=== PATIENT | female | born 1940 | race Caucasian/White ===

== ENCOUNTER → 2016-10-29 | Outpatient (REF) | payer MEDICARE, OTHER ==
[~2016-10-29] MED LIST: BOTOX; GLYB125TA PO; LASI40TA PO; LISI30TA4 PO; OMEP20CA3 PO; PIOG15TA3 PO; SIMV20TA2 PO; ZOLO50TA PO
[2016-10-29 18:46] LABS: ALBUMIN 3.6 GM/DL (3.2-5.2); CALCIUM LEVEL 8.6 MG/DL (8.8-10.2); CREATININE FOR GFR 1.44 MG/DL (0.55-1.02); GLOMERULAR FILTRATION RATE 37.9 (>39); PHOSPHORUS LEVEL 3.6 MG/DL (2.5-4.9); POTASSIUM SERUM 4.2 MEQ/L (3.5-5.1)
== END ==
LOC: M SFHCCLAY 09:49
PROVIDERS: ATTEND Family Medicine
DX: N18.3 Chronic kidney disease, stage 3 (moderate) (principal)

== ENCOUNTER → 2016-11-04 | Outpatient (CLI) | payer MEDICARE, BC, OTHER ==
--- NOTE | 2016-11-04 13:52 | REP ---
Clinical: Chronic medical renal disease. Technique: Real time santana scale ultrasound examination using curved array transducer. Findings: The kidneys demonstrate increased central sinus fat and cortical thinning compatible with chronic medical renal disease. There is no hydronephrosis, nephrolithiasis or significant cystic lesions identified. Right kidney measures 10.1 x 3.5 x 4.8 cm. Kidney measures 10.5 x 3.7 x 4.5 cm with a vague 1.6 cm hypoechoic area at the lower pole which cannot be further evaluated by ultrasound. The bladder is under distended measuring 4.5 x 3.38 x 4.4 cm and grossly normal. Impression: 1. Chronic medical renal disease without hydronephrosis. 2. A vague 1.6 cm hypoechoic area at the lower pole of the left kidney cannot be further evaluated by ultrasound and the patient may benefit from pre and postcontrast CT for further investigation. Signed by Qamar Angel MD 11/04/2016 01:42 P
== END ==
LOC: M RAD 13:08
PROVIDERS: ATTEND Internal Medicine Nephrology
DX: N18.3 Chronic kidney disease, stage 3 (moderate) (principal)

== ENCOUNTER → 2017-02-05 | Outpatient (CLI) | payer MEDICARE, BC, OTHER ==
[~2017-02-05] MED LIST changes: +ISOVUE-370 76% 100ML VIAL (Q9967) As Ordered ONE
--- NOTE | 2017-02-05 10:30 | REP ---
CT abdomen pelvis multiphasic scanning without and with IV contrast: The study is compared to the renal ultrasound dated 11/04/2016. On the renal ultrasound. There was a hypoechoic area at the lower pole of the left kidney, nonspecific by ultrasound. CT study today is initially performed without IV contrast from diaphragms to the iliac crests. This is followed by CT scanning with IV contrast during the arterial phase of enhancement from the diaphragms to the iliac crests. This is followed by scanning during the portal venous phase of enhancement from the diaphragms to the pubic symphysis. This is followed by scanning during the delayed equilibrium phase of enhancement from the diaphragms to the iliac crests. Sagittal coronal reformats are performed. There is no mass, cyst or other abnormality at the lower pole of the left kidney by CT. The left and right kidneys are otherwise unremarkable without hydronephrosis, calculus, mass or cyst. The ureters are unremarkable. The bladder is incompletely distended but otherwise unremarkable. There is an umbilical hernia measuring 5.8 cm diameter containing omental fat but no bowel. The peritoneal defect measures 1.9 cm. There is no bowel distension. Mesentery is unremarkable. Pelvis: The the patient indicates she has an appendectomy. and hysterectomy. The vaginal cuff and adnexa are unremarkable. There is no adenopathy or ascites. There are diverticula in the descending colon and sigmoid colon. There is no CT evidence of diverticulitis. Impression: There are no renal masses at the lower pole of the left kidney. The kidneys are otherwise unremarkable. There is a fat-containing umbilical hernia. There is diverticulosis without diverticulitis. Otherwise, negative CT study of the abdomen and pelvis. The visualized lung rg are unremarkable. The hepatic parenchyma is homogeneous on all phases of the study. Surgical clips in the gallbladder fossa. The pancreas and spleen are normal size and unremarkable. The adrenals are unremarkable. The abdominal aorta and visualized portion of the mesentery is unremarkable. Signed by Richmond Narayan MD 02/05/2017 10:21 A
== END ==
LOC: M RAD 08:18
PROVIDERS: ATTEND Internal Medicine Nephrology
DX: D41.02 Neoplasm of uncertain behavior of left kidney (principal)
CPT/HCPCS: 74178; Q9967

== ENCOUNTER → 2017-04-21 | Outpatient (REF) | payer MEDICARE, BC, OTHER ==
[~2017-04-21] MED LIST changes: +BIMA01SOL OU; +FURO40TA2 PO; -ISOVUE-370 76% 100ML VIAL (Q9967) As Ordered ONE; +SPIR25TA2 PO
[2017-04-21 20:20] LABS: CALCIUM LEVEL 8.8 MG/DL (8.8-10.2); CREATININE FOR GFR 1.32 MG/DL (0.55-1.02); GLOMERULAR FILTRATION RATE 41.9 (>39); POTASSIUM SERUM 4.3 MEQ/L (3.5-5.1)
== END ==
LOC: M LAB REF 16:58
PROVIDERS: ATTEND Orthopaedic Surgery
DX: S83.242D Other tear of medial meniscus, current injury, left knee, subsequent encounter (principal); X58.XXXD Exposure to other specified factors, subsequent encounter; Y92.89 Other specified places as the place of occurrence of the external cause; Y93.89 Activity, other specified; Y99.8 Other external cause status

== ENCOUNTER 2017-05-10 09:34 | Day surgery (SDC) | payer MEDICARE, BC, OTHER ==
[~2017-05-10] VITALS: Ht 162.6 cm; Wt 117.9 kg
[~2017-05-10 09:34] MED LIST changes: +LIDOCAINE 2% INJ 100 MG/5 ML SDV (FOR ANES.) As Ordered ONE; +MIDAZOLAM INJ 2 MG/2 ML VIAL (J2250) As Ordered ONE; +ONDANSETRON 4MG/2ML VIAL (J2405) As Ordered ONE; +PROPOFOL 200 MG/20 ML VIAL As Ordered ONE; +dexameTHASONE 4 MG/ML 1ML VIAL (J1100) As Ordered ONE; +fentaNYL 100 MCG/2 ML INJECTION (J3010) As Ordered ONE
[2017-05-10] MEDS ORDERED: CLINDAMYCIN 600 MG in APPROPRIATE DILUENT 1 EA IV ONE (10:00)
[2017-05-10] MEDS ORDERED: LR 1,000 ML IV ONE (10:00)
[2017-05-10] MEDS ORDERED: ROPIvacaine 0.5% 30 ML INJECTION (J2795) As Ordered ONE (10:29)
[2017-05-10] MEDS ORDERED: TRIAMCINOLONE ACETONIDE SUSP 40 MG/ML VIAL (J3301) As Ordered ONE (10:57)
--- NOTE | 2017-05-10 11:31 | RO ---
DATE OF PROCEDURE: 05/10/2017 PREOPERATIVE DIAGNOSIS: Left knee osteoarthritis, medial meniscus tear. POSTOPERATIVE DIAGNOSIS: Left knee osteoarthritis, medial meniscus tear, with lateral meniscus tear. PROCEDURE: Left knee operative arthroscopy, partial medial and lateral meniscectomy, joint debridement. She did have extensive arthritis of three compartments. SURGEON: Dr. Casey Gutierrez [employer] MISSILE CHECK[employer] TECHNICIAN: Noah Shah ANESTHESIA: General. ESTIMATED BLOOD LOSS: Minimal COMPLICATIONS: None. INDICATIONS: This is a morbidly obese 76-year-old woman who has had persistent left knee pain. MRI scan was consistent with arthritis and a possible medial meniscal tear. She wished to go ahead with surgical treatment and understood the nature of the procedure and the risks of bleeding, infection, damage to nerves, vessels, persistent pain, blood clots, medical problems, among others. PROCEDURE: The patient was taken to the operating room and placed in supine position after general anesthesia was induced. The left lower extremity was prepped and draped in the usual sterile fashion. I elected to not use a tourniquet because of the size of her leg and I felt that it would be counterproductive. A time-out was performed. I then created inferomedial and inferolateral portals per routine and she had extensive degenerative change grade 3 to 4 throughout the patellofemoral joint. I proceeded down both gutters and got inside of the medial compartment. There was a complex medial meniscus tear in the body and posterior horn that was debrided back with a shaver back to a stable rim. I also smoothed off the articular surfaces which had loose flaps. I proceeded to the notch. The anterior cruciate ligament (ACL) was relatively unremarkable. The lateral compartment was identified. There was extensive lateral compartment arthritis and a small central lateral meniscus tear that was debrided with the shaver. I also smoothed off any loose flaps laterally. I debrided the patellofemoral joint as best as possible, but this was quite difficult given the size of her leg and instrumenting the knee was quite difficult as a result. Once I finished the procedure, I irrigated copiously and removed the instrumentation. I closed the portals using #4-0 nylon suture and injected 30 mL of Naropin with 20 mg of Kenalog. Sterile dressing was applied. She was taken to recovery room in stable condition. There were no known complications. The plan be routine postop. This was an unusually difficult procedure due to her significant obesity and the difficulty in instrumenting the knee as a result.
[2017-05-10] MEDS ORDERED: NORCO, ANEXSIA 5/325MG TABLET (HYDROcodone/ACETAMINOPHEN) As Ordered ONE (11:44)
[2017-05-10] MEDS ORDERED: fentaNYL 100 MCG/2 ML INJECTION (J3010) As Ordered ONE (11:44)
[2017-05-10] MEDS ORDERED: ONDANSETRON 4MG/2ML VIAL (J2405) As Ordered ONE (11:50)
[2017-05-10] MEDS: fentaNYL 100 MCG/2 ML INJECTION (J3010) IV PRN ×4 (11:52→12:11)
[2017-05-10] MEDS ORDERED: LR 1,000 ML IV SCH ×2 (12:00)
[2017-05-10] MEDS ORDERED: NORCO, ANEXSIA 5/325MG TABLET (HYDROcodone/ACETAMINOPHEN) PO PRN ×2 (12:00)
[2017-05-10] MEDS ORDERED: ONDANSETRON 4MG/2ML VIAL (J2405) IV PRN (12:00)
[2017-05-10] MEDS ORDERED: KETOROLAC 30 MG/ML VIAL (J1885) As Ordered ONE (12:20)
[2017-05-10] MEDS ORDERED: PERCOCET 5MG/325MG TAB PO PRN (12:30)
[2017-05-10] MEDS ORDERED: KETOROLAC 30 MG/ML VIAL (J1885) IV ONE (13:00)
[2017-05-10 13:40] VITALS: BP 139/64
== END 2017-05-10 13:50 | disposition home or self-care (01) ==
LOC: M SDC 09:34
PROVIDERS: ATTEND Orthopaedic Surgery
DX: M17.12 Unilateral primary osteoarthritis, left knee (principal); M23.222 Derangement of posterior horn of medial meniscus due to old tear or injury, left knee; M23.262 Derangement of other lateral meniscus due to old tear or injury, left knee; M25.562 Pain in left knee; E11.9 Type 2 diabetes mellitus without complications; I10 Essential (primary) hypertension; E78.5 Hyperlipidemia, unspecified; K21.9 Gastro-esophageal reflux disease without esophagitis; E66.9 Obesity, unspecified; Z79.899 Other long term (current) drug therapy; F32.9 Major depressive disorder, single episode, unspecified; Z88.0 Allergy status to penicillin; Z88.2 Allergy status to sulfonamides; Z91.041 Radiographic dye allergy status
CPT/HCPCS: 29880; 29887; J1100; J1885; J2250; J2405; J2795; J3010; J3301

== ENCOUNTER → 2017-07-28 | Outpatient (REF) | payer MEDICARE, OTHER ==
[~2017-07-28] MED LIST changes: -LIDOCAINE 2% INJ 100 MG/5 ML SDV (FOR ANES.) As Ordered ONE; -MIDAZOLAM INJ 2 MG/2 ML VIAL (J2250) As Ordered ONE; -ONDANSETRON 4MG/2ML VIAL (J2405) As Ordered ONE; -PROPOFOL 200 MG/20 ML VIAL As Ordered ONE; -dexameTHASONE 4 MG/ML 1ML VIAL (J1100) As Ordered ONE; -fentaNYL 100 MCG/2 ML INJECTION (J3010) As Ordered ONE
[2017-07-29 12:42] LABS: ALBUMIN 4.1 GM/DL (3.2-5.2); ALBUMIN/GLOBULIN RATIO 1.21 (1.00-1.93); BILIRUBIN,TOTAL 0.3 MG/DL (0.2-1.0); CALCIUM LEVEL 8.9 MG/DL (8.8-10.2); CREATININE FOR GFR 1.66 MG/DL (0.55-1.02); GLOMERULAR FILTRATION RATE 32.1 (>39); POTASSIUM SERUM 4.4 MEQ/L (3.5-5.1); TOTAL PROTEIN 7.5 GM/DL (6.4-8.2)
== END ==
LOC: M SFHCCLAY 14:59
PROVIDERS: ATTEND Family Medicine
DX: E11.9 Type 2 diabetes mellitus without complications (principal)

== ENCOUNTER → 2018-05-09 | Outpatient (REF) | payer MEDICARE, OTHER ==
[2018-05-09 14:46] LABS: FERRITIN 41 NG/ML (8-252); IRON (FE) 71 UG/DL (50-170); PERCENT SATURATION 21.6 % (13.2-45.0); TOTAL IRON BINDING CAPACITY 328 UG/DL (250-450)
== END ==
LOC: M LAB REF 13:43
DX: D50.9 Iron deficiency anemia, unspecified (principal)
CPT/HCPCS: 83550

== ENCOUNTER 2018-11-14 08:56 | Outpatient (CLI) | payer MEDICARE, BC, OTHER ==
[~2018-11-14] VITALS: Ht 157.5 cm; Wt 105.5 kg
[2018-11-14] VITALS (7 sets, daily range): BP systolic 122–155; BP diastolic 57–97
[~2018-11-14 08:56] MED LIST changes: -LASI40TA PO; +LASI40TA9 PO; +LISI-672 PO; -LISI30TA4 PO; -PIOG15TA3 PO; +PIOG1TAB36 PO; +SPIR-10 PO; -SPIR25TA2 PO
[2018-11-14] MEDS ORDERED: IRON SUCROSE 25 MG in NS 50 ML IV ONE (10:00)
[2018-11-14] MEDS ORDERED: IRON SUCROSE 475 MG in NS 250 ML IV ONE (11:00)
== END 2018-11-14 14:30 | disposition home or self-care (01) ==
LOC: M INFU 08:56
PROVIDERS: ATTEND Internal Medicine Nephrology
DX: D50.9 Iron deficiency anemia, unspecified (principal); N18.3 Chronic kidney disease, stage 3 (moderate); Z79.899 Other long term (current) drug therapy
CPT/HCPCS: 96365; 96366; J1756

== ENCOUNTER → 2018-12-21 | Outpatient (CLI) | payer MEDICARE, BC, OTHER ==
--- NOTE | 2018-12-21 14:23 | REP ---
REASON FOR EXAM: Abnormal weight loss. The exam is limited by lack of intravenous contrast administration and administration of oral bowel preparatory contrast. The prior examination of 02/05/2017 was reviewed. There is no change in the lung bases. Surgical clips are again seen in the gallbladder fossa from previous cholecystectomy. Limited evaluation of the solid intra-abdominal organs show no gross abnormalities or significant changes from the prior exam. Limited evaluation of the pancreas, adrenal glands, and kidneys show no gross abnormalities or significant changes from the prior exam. Limited evaluation of the abdominal aorta and paraaortic regions show no gross abnormalities or significant changes from the prior exam. There is no free fluid or free air in the abdomen. There is a low anterior abdominal wall ventral rent in through which a loop of large bowel is present. The large bowel loops is surrounded by mesenteric adipose. The previous exam showed only a mesenteric fat-containing hernia. There is no ferdinand evidence of intestinal obstruction. The bowel loops, although seen in a limited fashion are otherwise unremarkable. Note is again made of descending colon diverticulosis. CT PELVIS: There is extensive sigmoid colon diverticulosis status quo. There is no evidence of a pelvic mass or adenopathy. There is no free fluid or free air. Bone window technique throughout the examination again shows spinal and sacroiliac joint degenerative changes along with bilateral hip degenerative changes status quo. IMPRESSION: 1. Low anterior abdominal hernia as described above. 2. Stable-appearing colonic diverticulosis as described above. 3. Other findings and exam limitations as described above. ? Electronically Signed by Timothy Pierce DO 12/21/2018 03:26 P
== END ==
LOC: M RAD 13:10
PROVIDERS: ATTEND Internal Medicine Gastroenterology
DX: K57.30 Diverticulosis of large intestine without perforation or abscess without bleeding (principal); K44.9 Diaphragmatic hernia without obstruction or gangrene

== ENCOUNTER 2018-12-28 08:04 | Day surgery (SDC) | payer MEDICARE, BC, OTHER ==
[~2018-12-28] VITALS: Ht 157.5 cm; Wt 96.5 kg
[~2018-12-28 08:04] MED LIST changes: +LIDOCAINE 2% INJ 100 MG/5 ML SDV (FOR ANES.) As Ordered ONE; +NS 1,000 ML IV ONE; +PROPOFOL 200 MG/20 ML VIAL As Ordered ONE
[2018-12-28] MEDS ORDERED: PROPOFOL 200 MG/20 ML VIAL As Ordered ONE ×2 (09:18→09:35)
--- NOTE | 2018-12-28 09:20 | ROOR ---
Patient Name: Christy Riojas Procedure Date: 12/28/2018 8:50 AM Date of : 1940 Age: 78 Room: [facility] Gender: Female Note Status: Finalized Procedure: Upper GI endoscopy Indications: Weight loss Providers: Rell KEY MD Referring MD: Ross Saunders MD ([place]) Requesting Provider: Medicines: Monitored Anesthesia Care Complications: No immediate complications. Procedure: Pre-Anesthesia Assessment: - The heart rate, respiratory rate, oxygen saturations, blood pressure, adequacy of pulmonary ventilation, and response to care were monitored throughout the procedure. The Endoscope was introduced through the mouth, and advanced to the third part of duodenum. The upper GI endoscopy was accomplished without difficulty. The patient tolerated the procedure well. Findings: The examined esophagus was normal. A small hiatal hernia was present. A single 5 mm sessile polyp was found in the gastric antrum. The polyp was removed with a cold snare. Resection and retrieval were complete. Multiple diffuse erosions without bleeding were found in the second portion of the duodenum and in the third portion of the duodenum. Biopsies were taken with a cold forceps for histology. Impression: - Normal esophagus. - Small hiatal hernia. - A single gastric polyp. Resected and retrieved. - Multiple shallow duodenal erosions/shallow ulcerations without bleeding. Biopsied. Recommendation: - - Will check fasting serum gastrin level. (off PPI x 3 days) - Resume PPI bid after gastrin level drawn. Await pathology report Rell Key MD Rell KEY MD 12/28/2018 9:19:41 AM Electronically signed by Rell KEY MD Number of Addenda: 0 Note Initiated On: 12/28/2018 8:50 AM Estimated Blood Loss: Estimated blood loss: none.
--- NOTE | 2018-12-28 09:54 | ROOR ---
Patient Name: Christy Riojas Procedure Date: 12/28/2018 8:52 AM Date of : 1940 Age: 78 Room: [facility] Gender: Female Note Status: Finalized Procedure: Colonoscopy Indications: Clinically significant diarrhea of unexplained origin, weight loss Providers: Rell KEY MD Referring MD: Ross Saunders MD ([place]) Requesting Provider: Medicines: Monitored Anesthesia Care Complications: No immediate complications. Procedure: Pre-Anesthesia Assessment: - The heart rate, respiratory rate, oxygen saturations, blood pressure, adequacy of pulmonary ventilation, and response to care were monitored throughout the procedure. The Colonoscope was introduced through the anus and advanced to the terminal ileum, with identification of the appendiceal orifice and IC valve. The colonoscopy was performed without difficulty. The patient tolerated the procedure well. The quality of the bowel preparation was good. Findings: The perianal and digital rectal examinations were normal. (Exam: Complete, Prep: Good or Excellent.) An infiltrative non-obstructing medium-sized mass was found in the distal ascending colon. The mass was partially circumferential (involving one-third of the lumen circumference). The mass measured four cm in length. This was biopsied with a cold forceps for histology. Two sessile polyps were found in the sigmoid colon. The polyps were 4 to 5 mm in size. These polyps were removed with a cold snare. Resection and retrieval were complete. Multiple small and large-mouthed diverticula were found in the sigmoid colon. There was narrowing of the colon in association with the diverticular opening. Biopsies for histology were taken with a cold forceps from the entire colon for evaluation of microscopic colitis. Impression: - Rule out malignancy, 4 cm infiltrative tumor in the mid/distal ascending colon. Biopsied. - Two 4 to 5 mm polyps in the sigmoid colon, removed with a cold snare. Resected and retrieved. - Moderate diverticulosis in the sigmoid colon. There was narrowing of the colon in association with the diverticular opening. - Biopsies were taken with a cold forceps from the entire colon for evaluation of microscopic colitis. Recommendation: - Await pathology results. - Refer to a surgeon at appointment to be scheduled. Rell Key MD Rell KEY MD 12/28/2018 9:54:27 AM Electronically signed by Rell KEY MD Number of Addenda: 0 Note Initiated On: 12/28/2018 8:52 AM Estimated Blood Loss: Estimated blood loss: none.
[2018-12-28 10:15] VITALS: BP 138/73
== END 2018-12-28 10:46 | disposition home or self-care (01) ==
LOC: M OPP 08:04
PROVIDERS: ATTEND Internal Medicine Gastroenterology
DX: C18.2 Malignant neoplasm of ascending colon (principal); D12.5 Benign neoplasm of sigmoid colon; K57.30 Diverticulosis of large intestine without perforation or abscess without bleeding; R19.7 Diarrhea, unspecified; R63.4 Abnormal weight loss; K44.9 Diaphragmatic hernia without obstruction or gangrene; K31.7 Polyp of stomach and duodenum; K26.9 Duodenal ulcer, unspecified as acute or chronic, without hemorrhage or perforation

== ENCOUNTER → 2019-01-11 | Outpatient (CLI) | payer MEDICARE, BC, OTHER ==
[~2019-01-11] MED LIST changes: -LIDOCAINE 2% INJ 100 MG/5 ML SDV (FOR ANES.) As Ordered ONE; -NS 1,000 ML IV ONE; -PROPOFOL 200 MG/20 ML VIAL As Ordered ONE
== END ==
LOC: M LAB 09:25
PROVIDERS: ATTEND Internal Medicine Gastroenterology
DX: K26.9 Duodenal ulcer, unspecified as acute or chronic, without hemorrhage or perforation (principal)

== ENCOUNTER → 2019-01-30 | Outpatient (CLI) | payer MEDICARE, OTHER ==
[~2019-01-30] MED LIST changes: +FAMO1TAB11 PO
--- NOTE | 2019-01-30 12:34 | REP ---
CHEST X-RAY: Two views. HISTORY: Malignant neoplasm. COMPARISON CHEST X-RAY: June 18, 2009. FINDINGS: There are clips in right upper quadrant of the abdomen. The lungs are well inflated and clear. The pleural angles are sharp. Heart is not enlarged. The aorta is slightly calcific. There are degenerative changes in the thoracic spine. Pulmonary vasculature is not increased. IMPRESSION: No active disease.
== END ==
LOC: M CLY 10:48
PROVIDERS: ATTEND Family Medicine
DX: C18.2 Malignant neoplasm of ascending colon (principal); E11.9 Type 2 diabetes mellitus without complications

== ENCOUNTER → 2019-01-30 | Outpatient (REF) | payer MEDICARE, OTHER ==
[2019-01-30 16:46] LABS: BASO # 0.1 10^3/uL (0.0-0.2); BASO % 0.7 % (0.0-1.0); EOS # 0.3 10^3/uL (0.0-0.50); EOS % 3.1 % (0.0-3.0); HEMATOCRIT 31.7 % (36.0-47.0); HEMOGLOBIN 9.6 g/dl (12.0-15.5); LYMPH # 1.8 10^3/uL (1.5-4.5); LYMPH % 18.9 % (24.0-44.0); MEAN CORPUSCULAR HEMOGLOBIN 27.6 pg (27.0-33.0); MEAN CORPUSCULAR HGB CONC 30.3 g/dl (32.0-36.5); MEAN CORPUSCULAR VOLUME 91.1 fl (80.0-96.0); MONO # 0.7 10^3/uL (0.0-0.8); MONO % 7.7 % (0.0-5.0); NEUTROPHILS # 6.5 10^3/uL (1.8-7.7); NEUTROPHILS % 69.2 % (36.0-66.0); PLATELET COUNT, AUTOMATED 279 10^3/uL (150-450); RED BLOOD COUNT 3.48 10^6/uL (4.00-5.40); WHITE BLOOD COUNT 9.4 10^3/uL (4.0-10.0)
[2019-01-30 16:49] LABS: ALBUMIN 3.1 GM/DL (3.2-5.2); BILIRUBIN,TOTAL 0.2 MG/DL (0.2-1.0); CALCIUM LEVEL 9.2 MG/DL (8.8-10.2); CREATININE FOR GFR 1.86 MG/DL (0.55-1.30); POTASSIUM SERUM 4.3 MEQ/L (3.5-5.1); TOTAL PROTEIN 6.9 GM/DL (6.4-8.2)
== END ==
LOC: M SFHCCLAY 10:31
PROVIDERS: ATTEND Family Medicine
DX: C18.2 Malignant neoplasm of ascending colon (principal); E11.9 Type 2 diabetes mellitus without complications

== ENCOUNTER 2019-02-09 05:56 | Inpatient (IN) | payer MEDICARE, BC, OTHER ==
[2019-02-09] VITALS (7 sets, daily range): BP systolic 130–157; BP diastolic 60–78
[~2019-02-09] VITALS: Ht 157.5 cm; Wt 104.4 kg
[2019-02-09] MEDS ORDERED: LR 1,000 ML IV ONE (06:00)
[2019-02-09 06:34] LABS: HEMATOCRIT 31.8 % (36.0-47.0); MEAN CORPUSCULAR HEMOGLOBIN 28.7 pg (27.0-33.0); MEAN CORPUSCULAR HGB CONC 31.4 g/dl (32.0-36.5); MEAN CORPUSCULAR VOLUME 91.1 fl (80.0-96.0); PLATELET COUNT, AUTOMATED 284 10^3/uL (150-450); RED BLOOD COUNT 3.49 10^6/uL (4.00-5.40); WHITE BLOOD COUNT 10.4 10^3/uL (4.0-10.0)
[2019-02-09] MEDS ORDERED: ERTAPENEM 1 GM INJ (INVanz) (J1335) As Ordered ONE (06:37)
[2019-02-09] MEDS ORDERED: ALVIMOPAN 12 MG CAPSULE (ENTEREG) PO ONE (06:45)
[2019-02-09] MEDS ORDERED: ERTAPENEM SODIUM 1 GM in NS MINI-BAG PLUS 50 ML IV ONE (06:45)
[2019-02-09 06:55] LABS: CALCIUM LEVEL 9.4 MG/DL (8.8-10.2); CREATININE FOR GFR 2.18 MG/DL (0.55-1.30); GLOMERULAR FILTRATION RATE 23.3 (>39); POTASSIUM SERUM 4.1 MEQ/L (3.5-5.1)
[2019-02-09] MEDS ORDERED: METR-265 (07:23)
[2019-02-09] MEDS ORDERED: SUPRSOL2 (07:23)
[2019-02-09] MEDS ORDERED: NEOM500T (07:23)
[2019-02-09] MEDS ORDERED: BUPIVACAINE HCL 0.25% 30 ML VIAL As Ordered ONE (07:32)
[2019-02-09] MEDS ORDERED: BUPIVACAINE LIPOSOME/PF 1.3% 20ML VIAL (13.3MG/ML)(EXPAREL)(C9290 PER1MG) As Ordered ONE (07:33)
--- NOTE | 2019-02-09 07:36 | HPE ---
DATE OF ADMISSION: 02/09/2019 ADMITTING DIAGNOSIS: 1. Right colon cancer. 2. Umbilical hernia. HISTORY OF PRESENT ILLNESS: The patient is a 78-year-old woman who has undergone a colonoscopy on December [address] Das of gastroenterology this was done for a history of significant diarrhea and weight loss. She was found to have what was described as an infiltrative nonobstructing medium sized mass in the distal ascending colon. This was reported to be approximately 4 cm in length. Two smaller polyps were noted in the sigmoid colon. She had some diverticulosis also noted in the sigmoid. An EGD done on the same day revealed some duodenal erosions as well as a small polyp in the gastric antrum. 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 Her gastric polyp was benign and her duodenal biopsies showed acute inflammation. The patient has not noticed any rectal bleeding. The patient's father apparently had colon cancer diagnosed at age 63 and succumbed to metastatic cancer at age 65. The patient's most recent prior colonoscopy had been in January 2016. She had a CT scan of the abdomen and pelvis on December 21 which revealed a low anterior abdominal wall hernia with a loop of large bowel contained therein. There were no other abnormalities seen. She was referred to in for evaluation and treatment of her ascending colon cancer. She is now admitted to undergo a robotically assisted laparoscopic right hemicolectomy with repair of her umbilical hernia as well. ALLERGIES: Penicillin and x-ray contrast. CURRENT MEDICATIONS: Cholestyramine 4 grams by mouth three times daily for diarrhea as needed, famotidine 20 mg by mouth daily, glyburide 2.5 mg by mouth every day in the morning, Lasix 40 mg by mouth daily, lisinopril 20 mg by mouth daily, Lumigan eye drops in both eyes daily, omeprazole 20 mg by mouth daily, simvastatin 20 mg by mouth daily, spironolactone 25 mg by mouth daily, vitamin D3 1000 units by mouth daily and Zoloft 50 mg by mouth daily. MEDICAL HISTORY: Significant for essential hypertension. She has a history of diabetes. She has depression. She was treated for endometrial carcinoma in 2013. She has a history of hypercholesterolemia. She has a history of chronic kidney disease stage III as well as a diagnosis of anxiety. PAST SURGICAL HISTORY: Right rotator cuff repair in approximately 2004. He had a previous dilatation and curettage. She underwent a cholecystectomy in 1979. She has been treated for torn meniscus. A hysterectomy in 2013. She has had colonoscopy in January 2016 and then had a more recent colonoscopy in December 2018. She has had a tendon repair and her right wrist in 1994. She has undergone cataract surgery as well as treatment for a trigger finger. FAMILY HISTORY: Significant for her father succumbing to metastatic colon cancer. Her mother was age 89 and had a history of breast cancer and hypertension. SOCIAL HISTORY: The patient is a former smoker who is has approximately five pack years of smoking history and quit back in 1971. She denies any significant alcohol use. The patient's primary physician is Dr. Casey Saunders from [place]. REVIEW OF SYSTEMS: Reveals no fevers or chills. Denies any visual disturbances. She denies any chest pain or palpitations. She has had no chronic cough, wheezing or sputum production. She denies any rectal bleeding. She has had diarrhea more frequently. She denies any history of heartburn or jaundice. She denies any dysuria or hematuria. She is not having any particular bone or joint problems at this time. She has not had any recent rash. She has no history of DVT or pulmonary embolus. PHYSICAL EXAMINATION: Physical exam reveals a pleasant woman in no acute distress. Her height is recorded at 63 inches with a weight of approximately 100 kg giving her of BMI of approximately 39. She is alert, oriented and cooperative. Skin: Is warm and dry. Sclerae are anicteric. The neck is supple without mass or bruit. Heart: Exam reveals a regular rate and rhythm. The lungs are clear to auscultation bilaterally. Abdomen is obese. She has an old right subcostal scar consistent with her cholecystectomy. She has active bowel sounds. The abdomen is soft and nontender without appreciable mass. She does have a hernia palpable at the umbilicus which reduces. Rectal exam as reported on her recent colonoscopy was normal. Skin: Is warm and dry. Lower extremities: Show no peripheral edema and she has intact peripheral pulses. Laboratory studies from January 30 reveal a white count of 9000, hemoglobin of 10, hematocrit of 32 and platelet count is 279,000. Her differential count shows 69% neutrophils, 19% lymphocytes and 8% monocytes. Chemistry profile showed sodium of 143, potassium 4.3, chloride 112, CO2 of 24, BUN of 43, creatinine 1.86 and glucose of 99. Liver function tests are normal. As noted in the history of present illness. Her biopsy of the colon mass revealed adenocarcinoma which was moderately differentiated with mucinous features. The polyps of the sigmoid colon proved to be adenomas. A some random colon biopsies showed colonic mucosa free of significant acute or chronic inflammation and negative for microscopic colitis. Her imaging was primarily a CT scan of the abdomen and pelvis from December 21, 2018. This revealed no evidence of metastatic disease within the liver. There were multiple clips within the gallbladder fossa. Her kidneys appeared somewhat small in size. She had a definite hernia at the umbilicus containing a portion of bowel. She had diverticulosis noted in her sigmoid colon in particular. The tumor in the right colon was not readily identifiable. IMPRESSION: 1. Ascending colon carcinoma. 2. Umbilical hernia. 3. Diabetes mellitus type 2. 4. Hypertension. 5. Hypercholesterolemia. 6. Depression and anxiety. 7. Chronic kidney disease stage III. PLAN: The patient is being admitted on February 09, 2019 to undergo a robotically assisted laparoscopic right hemicolectomy with repair of her umbilical hernia as well. She is to perform a full mechanical antibiotic bowel preparation utilizing neomycin and Flagyl the day prior to admission. He should have a CEA level checked on admission. She will receive and Coreg preoperatively as well as preoperative antibiotics. A Lal catheter will be placed preoperatively. The patient was counseled regarding the nature of the surgery. The plan is to proceed with a laparoscopic procedure with robotic-assisted. He was counseled regarding the risks of the surgery which include but are not limited to bleeding, infection, scarring, adverse drug reaction, need for further surgery, injury to internal organ, and anastomotic leak, and hernia. He had an opportunity to ask questions and desires to proceed with the surgery as I have outlined it.
[2019-02-09] MEDS ORDERED: METOCLOPRAMIDE INJ 10MG/2ML VIAL (J2765) As Ordered ONE (08:08)
[2019-02-09] MEDS ORDERED: DESFLURANE 240 ML INHALANT As Ordered ONE (08:08)
[2019-02-09] MEDS ORDERED: MIDAZOLAM INJ 2 MG/2 ML VIAL (J2250) As Ordered ONE (08:08)
[2019-02-09] MEDS ORDERED: LIDOCAINE 2% INJ 100 MG/5 ML SDV (FOR ANES.) As Ordered ONE (08:08)
[2019-02-09] MEDS ORDERED: PROPOFOL 200 MG/20 ML VIAL As Ordered ONE (08:08)
[2019-02-09] MEDS ORDERED: ROCURONIUM BROMIDE 50 MG/5 ML VIAL As Ordered ONE ×3 (08:08→11:50)
[2019-02-09] MEDS ORDERED: ONDANSETRON 4MG/2ML VIAL (J2405) As Ordered ONE (08:08)
[2019-02-09] MEDS ORDERED: fentaNYL 250 MCG/5 ML INJECTION (J3010) As Ordered ONE (08:08)
[2019-02-09] MEDS ORDERED: SUGAMMADEX SODIUM 500 MG/5 ML VIAL (BRIDION) As Ordered ONE (08:08)
[2019-02-09] MEDS ORDERED: dexameTHASONE 4 MG/ML 1ML VIAL (J1100) As Ordered ONE (08:08)
[2019-02-09] MEDS ORDERED: HYDROmorphone HCL 2 MG/ML 1ML VIAL (J1170) As Ordered ONE (09:02)
[2019-02-09] MEDS ORDERED: ePHEDrine SULFATE 25 MG/5 ML(5MG/ML) SYRINGE As Ordered ONE (11:34)
[2019-02-09] MEDS ORDERED: ACETAMINOPHEN 1000MG 100ML IV BTL (OFIRMEV) (J0131 PER 10MG) As Ordered ONE (13:09)
[2019-02-09] MEDS ORDERED: fentaNYL 100 MCG/2 ML INJECTION (J3010) As Ordered ONE (13:12)
[2019-02-09] MEDS ORDERED: MORPHINE 4 MG/ML 1ML VIAL/SYRINGE (J2270) IV PRN (14:45)
[2019-02-09] MEDS ORDERED: ONDANSETRON 4MG/2ML VIAL (J2405) IV PRN (14:45)
[2019-02-09] MEDS ORDERED: ACETAMINOPHEN TAB 650MG DOSE (2X325MG) PO PRN (14:45)
[2019-02-09] MEDS ORDERED: KETOROLAC 30 MG/ML VIAL (J1885) IV PRN (14:45)
[2019-02-09] MEDS ORDERED: fentaNYL 100 MCG/2 ML INJECTION (J3010) IV PRN (15:00)
[2019-02-09] MEDS ORDERED: HYDROMORPHONE HCL 0.5 MG/ 0.5 ML SYRINGE (J1170 PER 1) IV PRN (15:00)
[2019-02-09] MEDS ORDERED: LR 1,000 ML IV SCH (15:00)
[2019-02-09] MEDS ORDERED: PROMETHAZINE INJ 25 MG/ML VIAL (J2550) IV PRN (15:00)
[2019-02-09] MEDS: LR 1,000 ML IV SCH (16:03)
[2019-02-09] MEDS: HumaLOG INSULIN (NovoLOG) PER UNIT SC SCH (17:21)
[2019-02-09] MEDS: NORCO, ANEXSIA 5/325MG TABLET (HYDROcodone/ACETAMINOPHEN) PO PRN ×2 (18:51→23:29)
[2019-02-09] MEDS ORDERED: HumaLOG INSULIN (NovoLOG) PER UNIT SC SCH (21:00)
[2019-02-09] MEDS: SIMVASTATIN 20 MG TAB PO SCH (21:06)
[2019-02-09] MEDS: ENOXAPARIN 30 MG/0.3 ML SYR (J1650) SC SCH (21:07)
[2019-02-10] MEDS: LR 1,000 ML IV SCH ×2 (00:29→10:14)
[2019-02-10 02:00] VITALS: BP 128/59
[2019-02-10] MEDS: NORCO, ANEXSIA 5/325MG TABLET (HYDROcodone/ACETAMINOPHEN) PO PRN ×4 (04:27→19:47)
[2019-02-10 06:00] VITALS: BP 131/63
[2019-02-10 06:31] LABS: BASO % 0.1 % (0.0-1.0); EOS % 0.1 % (0.0-3.0); HEMATOCRIT 26.7 % (36.0-47.0); HEMOGLOBIN 8.2 g/dl (12.0-15.5); LYMPH # 1.4 10^3/uL (1.5-4.5); LYMPH % 10.3 % (24.0-44.0); MEAN CORPUSCULAR HEMOGLOBIN 28.5 pg (27.0-33.0); MEAN CORPUSCULAR HGB CONC 30.7 g/dl (32.0-36.5); MEAN CORPUSCULAR VOLUME 92.7 fl (80.0-96.0); MONO # 1.2 10^3/uL (0.0-0.8); MONO % 8.9 % (0.0-5.0); NEUTROPHILS # 10.7 10^3/uL (1.8-7.7); NEUTROPHILS % 79.9 % (36.0-66.0); PLATELET COUNT, AUTOMATED 242 10^3/uL (150-450); RED BLOOD COUNT 2.88 10^6/uL (4.00-5.40); WHITE BLOOD COUNT 13.4 10^3/uL (4.0-10.0)
[2019-02-10 06:50] LABS: CALCIUM LEVEL 8.3 MG/DL (8.8-10.2); CREATININE FOR GFR 2.16 MG/DL (0.55-1.30); GLOMERULAR FILTRATION RATE 23.6 (>39); POTASSIUM SERUM 4.6 MEQ/L (3.5-5.1)
[2019-02-10] MEDS: HumaLOG INSULIN (NovoLOG) PER UNIT SC SCH (07:30)
[2019-02-10] MEDS: FUROSEMIDE 40 MG TAB PO SCH (07:41)
[2019-02-10] MEDS: OMEPRAZOLE 20 MG CAP PO SCH (07:42)
[2019-02-10] MEDS: LISINOPRIL 10 MG TAB PO SCH (07:42)
[2019-02-10] MEDS: SERTRALINE HCL 50 MG TAB PO SCH (07:42)
[2019-02-10] MEDS: SPIRONOLACTONE 25 MG TAB PO SCH (07:42)
[2019-02-10] MEDS: FAMOTIDINE 20 MG TAB PO SCH (07:42)
[2019-02-10 10:00] VITALS: BP 120/42
[2019-02-10 14:00] VITALS: BP 131/53
[2019-02-10 18:00] VITALS: BP 145/66
[2019-02-10] MEDS: SIMVASTATIN 20 MG TAB PO SCH (19:46)
[2019-02-10 22:00] VITALS: BP 130/62
[2019-02-10] MEDS: ENOXAPARIN 30 MG/0.3 ML SYR (J1650) SC SCH (22:52)
[2019-02-11] MEDS: NORCO, ANEXSIA 5/325MG TABLET (HYDROcodone/ACETAMINOPHEN) PO PRN ×2 (01:13→08:12)
[2019-02-11 06:00] VITALS: BP 183/88
[2019-02-11 09:00] VITALS: BP 145/65
[2019-02-11] MEDS: SPIRONOLACTONE 25 MG TAB PO SCH (10:27)
[2019-02-11] MEDS: OMEPRAZOLE 20 MG CAP PO SCH (10:27)
[2019-02-11] MEDS: LISINOPRIL 10 MG TAB PO SCH (10:27)
[2019-02-11] MEDS: FUROSEMIDE 40 MG TAB PO SCH (10:28)
[2019-02-11] MEDS: FAMOTIDINE 20 MG TAB PO SCH (10:28)
[2019-02-11] MEDS: SERTRALINE HCL 50 MG TAB PO SCH (10:28)
--- NOTE | 2019-02-11 11:09 | IPNPDOC ---
Subjective General Date/Time Seen The patient was seen on 02/11/19 at 11:09. Subject Chief Complaint/History The patient is a 78-year-old female admitted with a reason for visit of Right Colon Cancer, Umbilical Hernia. Patient looks well. A little burping but no nausea. Reports passing flatus, small bm this morning. Only taking small bites as she is afraid she will not tolerate solid foods. Current Medications Current Medications Current Medications Acetaminophen (Tylenol Tab) 650 mg Q4HP PRN PO MILD PAIN or TEMP > 101; Start 02/09/19 at 14:45 Acetaminophen/ Hydrocodone Bitart ([place], Anexsia 5/325) 1 tab Q4HP PRN PO MODERATE PAIN (PS 5-7) Last administered on 02/11/19at 08:12; Start 02/09/19 at 14:45 Enoxaparin Sodium (Lovenox) 30 mg DAILY@2300 SC Last administered on 02/10/19at 22:52; Start 02/09/19 at 23:00 Famotidine (Pepcid) 20 mg DAILY PO Last administered on 02/11/19at 10:28; Start 02/10/19 at 09:00 Fentanyl Citrate (Sublimaze) 25 mcg Q5MP PRN IV MODERATE PAIN (PS 4-7); Start 02/09/19 at 15:00; Stop 02/09/19 at 16:00; Status DC Furosemide (Lasix) 40 mg DAILY PO Last administered on 02/11/19at 10:28; Start 02/10/19 at 09:00 Hydromorphone HCl (Dilaudid) 0.25 mg Q5MP PRN IV MODERATE/SEVERE PAIN (PS 5- 10); Start 02/09/19 at 15:00; Stop 02/09/19 at 16:00; Status DC Insulin Human Lispro (HumaLOG INSULIN) SEE PROTOCOL TABLE AC SC ; Start 02/09/19 at 17:30; Stop 02/10/19 at 10:50; Status DC Insulin Human Lispro (HumaLOG INSULIN) SEE PROTOCOL TABLE QHS SC ; Start 02/09/19 at 21:00; Stop 02/10/19 at 10:50; Status DC Ketorolac Tromethamine (ToRADol) 15 mg Q6HP PRN IV MILD/MODERATE PAIN (PS 1-7) Last administered on 02/09/19at 16:57; Start 02/09/19 at 14:45; Stop 02/10/19 at 08:41; Status DC Lactated Ringer's 1,000 ml @ 50 mls/hr Q20H IV ; Start 02/09/19 at 15:00; Stop 02/09/19 at 16:00; Status DC Lactated Ringer's 1,000 ml @ 100 mls/hr Q10H IV Last administered on 02/10/19at 00:29; Start 02/09/19 at 14:36; Stop 02/10/19 at 10:50; Status DC Lisinopril (Prinivil) 30 mg DAILY PO Last administered on 02/11/19at 10:27; Start 02/10/19 at 09:00 Morphine Sulfate (Morphine Sulfate Inj) 2 mg Q2HP PRN IV MODERATE/SEVERE PAIN (PS 5-10); Start 02/09/19 at 14:45 Omeprazole (PriLOSEC) 20 mg DAILY PO Last administered on 02/11/19at 10:27; Start 02/10/19 at 09:00 Ondansetron HCl (ZOFRAN INJection) 4 mg Q6HP PRN IV NAUSEA OR VOMITING; Start 02/09/19 at 14:45 Promethazine HCl (PHENERGAN INJection) 12.5 mg Q5MP PRN IV NAUSEA OR VOMITING; Start 02/09/19 at 15:00; Stop 02/09/19 at 16:00; Status DC Sertraline HCl (Zoloft) 50 mg DAILY PO Last administered on 02/11/19at 10:28; Start 02/10/19 at 09:00 Simvastatin (Zocor) 20 mg DAILY@2000 PO Last administered on 02/10/19at 19:46; Start 02/09/19 at 20:00 Spironolactone (Aldactone) 25 mg DAILY PO Last administered on 02/11/19 10:27; Start 02/10/19 at 09:00 Allergies Coded Allergies: Contrast Media (Verified Allergy, Intermediate, hives, 12/22/18) sulfamethoxazole (Verified Allergy, Intermediate, heartburn/diarrhea, 12/22/18) trimethoprim (Verified Allergy, Intermediate, heartburn/diarrhea, 12/22/18) Penicillins (Verified Allergy, Mild, diarrhea, 12/22/18) Objective Physical Examination Examination GENERAL APPEARANCE:comfortable. SKIN: Warm and moist. HEENT: Normocephalic, atraumatic. [place] palpebral conjunctiva, anicteric sclerae. Lips and mucosa appear moist. NECK: Supple, no thyromegaly. No obvious jugular venous distention. LUNGS: Clear to auscultation bilaterally. No wheezing appreciated. HEART: No chest wall abnormalities. Regular rate and rhythm with no murmurs appreciated. ABDOMEN: Abdomen is obese, soft, nondistended. Dressings are c/d/i.. EXTREMITIES: no edema. Vital Signs Vital Signs Date Time Temp Pulse Resp B/P (MAP) Pulse Ox O2 Delivery O2 Flow Rate FiO2 02/11/19 10:27 145/65 02/11/19 08:42 18 02/11/19 06:00 97.6 73 96 02/10/19 10:00 3.0 I&Os I&O- Last 24 Hours up to 6 AM 02/11/19 06:00 Intake Total 1790 ml Output Total 950 ml Balance 840 ml Laboratory Data Labs 24H Laboratory Tests 2 02/10/19 11:31: Bedside Glucose (Misc Panel) 118H 02/10/19 20:22: Bedside Glucose (Misc Panel) 101 02/11/19 05:27: Bedside Glucose (Misc Panel) 105 Impression POD2 Robotic Assisted Laparoscopic Right Colectomy for Ascending Colon Cancer Over all looks to be doing well. I encouraged her to eat more, ambulate. possible d/c tomorrow if eating better. Plan / VTE VTE Prophylaxis Ordered?: Yes HERMAN BAUM MD Feb 11, 2019 11:09
[2019-02-11 14:00] VITALS: BP 166/73
--- NOTE | 2019-02-11 15:02 | IPN ---
DATE OF SERVICE: 02/10/2019 HISTORY: The patient is now postoperative day #1 from a robotic-assisted laparoscopic right hemicolectomy with ileocolonic anastomosis and repair of her umbilical hernia. Overnight with an excellent urine output. She has been out of bed to ambulate. She does report having passed some flatus but no stool as of yet. VITAL SIGNS: Show that she has been afebrile since surgery. Her pulse has generally been in the 60s and 70s. INTAKE AND OUTPUT: Shows that yesterday she had 4 liters in with 525 out. PHYSICAL EXAMINATION: The patient is alert and oriented and appears quite comfortable. Skin: Is warm and dry. Heart examination: Shows a regular rate and rhythm. Lungs are clear. The abdomen remains somewhat obese. Her dressings are clean and dry. She does have some active bowel sounds present, and there is no undue abdominal tenderness. Her Lal catheter is draining light yellow urine. LABORATORY STUDIES: Show that she had a white count of 13,000, hemoglobin of 8, hematocrit of 27, and a platelet count of 242,000. Differential count shows 80% neutrophils and 10% lymphocytes and 9% monocytes. Chemistry profile shows a sodium of 141, potassium 4.6, chloride 113, CO2 of 21, BUN of 43, and a creatinine of 2.16. Glucose was 152. Her CEA level done immediately postoperative was 1.2. Fingerstick blood sugars have been as high as 209 shortly after her surgery yesterday evening. IMPRESSION: The patient is doing very well postoperative. She had refused the subcutaneous insulin for management of her blood sugars, but these appear to be coming down today. She has no nausea or vomiting and has passed some flatus. Urine output has been good. PLAN: We will advance her diet to regular. She has tolerated some limited clear liquids, but I advised her to start the diet and go slow, and advance this as she tolerates it. We will remove her Lal catheter. IV will be saline locked. She is encouraged to be up ambulating. We discussed anticipated discharge, and I would think she might well be ready to go home on this coming Wednesday or Wednesday. My partner, Dr. Poole, will be covering, and I advised her of this.
[2019-02-11] MEDS: SIMVASTATIN 20 MG TAB PO SCH (19:47)
--- NOTE | 2019-02-11 21:52 | RO ---
DATE OF PROCEDURE: 02/09/2019 PREOPERATIVE DIAGNOSIS: Right colon cancer and umbilical hernia. POSTOPERATIVE DIAGNOSES: 1. Right-sided colon cancer. 2. Umbilical hernia. PROCEDURE PERFORMED: Robotic-assisted laparoscopic right hemicolectomy with ileocolonic anastomosis, lysis of adhesions and repair of umbilical hernia. SURGEON: Dr. Landa LITHOGRAPHIC ETCHER: Dr. Whitman, who was instrumental in assisting with the ileocolonic anastomosis and repair of the umbilical hernia. ANESTHESIA: General. INDICATIONS FOR PROCEDURE: Patient is a 78-year-old woman who had undergone a colonoscopy in December for a history of diarrhea and some weight loss. She was found to have a suspicious appearing mass in the distal descending colon with biopsies revealing moderately differentiated adenocarcinoma. She also has an umbilical hernia, which is perhaps 2 cm in diameter. She is now for a robotic-assisted laparoscopic right hemicolectomy, and we will also repair her hernia. OPERATIVE PROCEDURE: The patient was brought to the operating room and placed supine on the operating table. She was placed under general endotracheal anesthesia. Thromboembolic compression stockings (TEDS) and sequentials were applied. A Lal catheter was inserted. She was moved into a low lithotomy position. A digital rectal examination was performed, which revealed no palpable mucosal lesions. The patient's abdomen was prepped and draped in a sterile fashion. 0.25% Marcaine was infiltrated at trocar sites as needed. A short incision was made in the left upper quadrant, and a Veress needle was inserted. After positive hanging drop test, the abdomen was insufflated with carbon dioxide gas without difficulty. An 8 mm robotic Visiport trocar was inserted in the left upper quadrant. The laparoscope was placed and an initial examination showed some omental fat adherent up into her umbilical hernia. This could be partially reduced with pressure. She had some additional adhesions along the midline and up into the right upper quadrant, presumably associated with her prior cholecystectomy. The liver was partially seen and appeared normal. Portions of the stomach were seen appeared normal. Three additional 8 mm robotic trocars were then placed extending in a line obliquely from the left upper quadrant across the left midabdomen down into the low midportion. The lower abdominal port was then converted to a 12-mm port to allow use of the robotic stapler. The ports were adjusted and the robot was brought in, and the camera port was attached to the appropriate arm. Targeting took place and the additional arms were then attached. A grasping retractor was placed in the left-hand lateral with a bipolar grasper next and to the right of the camera was cauterizing scissors. I then moved to the control console. Ml Roman, nurse practitioner, remained at the bedside to assist in the port adjustments and instrument changes along with the other staff. I then proceeded to take down the adhesions to the anterior abdominal wall. These were fairly extensive and primarily in the mid and upper abdomen. The omentum was reduced from within the patient's umbilical hernia. This required transecting some adhesions to allow the last attachments to be taken down. The fascial defect appeared to be about 2 cm at the umbilicus. The remainder of the abdominal wall appeared with no significant fascial defects. There was some scarring noted in the right upper quadrant with tissue adherent to the undersurface of the liver. The patient was tilted slightly to a Trendelenburg position and rolled the left. I moved to the right lower quadrant and began the dissection of the cecum and ascending colon. There were a few attachments identified of the terminal ileum laterally and these were divided. The colon was mobilized from the lateral abdominal wall. The mass was identified presenting as a firm lump within the bowel with no evidence of involvement of the colon wall in about the mid a descending colon. There was abundant fibrofatty tissue in the right upper quadrant and about the hepatic flexure and transverse colon. Some attachments in the right upper quadrant were divided. I then moved to further dissection of the terminal ileum. The patient was tilted more steeply into a Trendelenburg position. There were some adhesions tethering the small bowel down into the pelvis and these were lysed to allow the small bowel to be moved into the upper abdomen. The terminal ileum was freed. A space was created through the terminal ileal mesentery using the cauterizing scissors, and the vessel sealer was then used to take down additional tissue of the terminal ileal mesentery. The terminal ileum was transected with a blue load of the 45 mm surgical stapler. I then moved back up to the transverse colon and tilted the patient into a slight reverse Trendelenburg position. The omentum was elevated off of the proximal transverse colon. Dissection was carried across the superior aspect of the proximal transverse colon working into the subhepatic space. The colon was mobilized inferiorly dividing the attachments. Dissection proceeded until the retroperitoneal duodenum was clearly exposed. Care was taken to protect this. Additional dissection along the right side of the colon was performed to mobilize this further. The patient was then flattened out and rolled somewhat to the left and dissection began in more earnest at the terminal ileum. The mesentery of the terminal ileum and the ascending colon and cecum was then divided at its base using the vessel sealer. Care was taken to achieve excellent hemostasis. The dissection was then carried up along the a ascending colon dividing the base of the mesentery with the vessel sealer. There was abundant fatty tissue, as noted previously and proved easier to perform part of the dissection in an antegrade manner up the ascending colon but the patient was then tilted again a slight reverse Trendelenburg position and dissection was carried across the transverse mesocolon working into the right upper quadrant until the two lines of dissection met and the colon was completely freed. The specimen was set aside in the right upper quadrant. The terminal ileum was inspected and this appeared to be mobilized quite well to allow anastomosis. Some attachments of the omentum to the transverse colon were then performed to allow this to be brought to meet the terminal ileum for an anastomosis. Once all of these areas had been addressed, the abdomen was inspected for hemostasis, which was excellent. The patient was returned to a flat position. The robot was undocked and removed from the patient's bedside. Standard graspers were used to grasp the terminal ileum and the end of the transverse colon and the third one on the specimen. An incision was made curving to the right of the umbilicus to utilize her umbilical hernia as part of the incision for delivery of the specimen. The hernia sac was opened and was quite large and this was excised. Because the umbilical skin was also quite thinned out, I also elected to excise much of the umbilical skin, leaving a portion behind to recreate her umbilicus. The fascial defect was opened and an incision was extended superiorly approximately three to four additional centimeters to make a large enough opening for delivery of the specimen. A small Khris retractor was placed. The specimen was then delivered through the wound. The tumor was clearly palpable within roughly mid ascending colon. There was a small amount of dimpling of the overlying fibrofatty tissue noted. I did not feel any obvious enlarged nodes within the mesentery. This was sent for permanent pathology. The end of the terminal ileum was brought out. A small portion of this was excised where it had been cauterized in the course of dissection. The end of colon was also brought forth and a stapled anastomosis was performed with a linear cutter 55 and a [id number] to complete the anastomosis. Several additional sutures of 3-0 Vicryl were placed. Vascularity of the anastomosis appeared excellent. This was irrigated and then reduced into the abdomen. The midline fascia was then closed with interrupted simple sutures of 1 Vicryl. The wound was irrigated with saline. As noted, Dr. Whitman had been essential for performing the anastomosis and closure of the fascial defect. He was then released from the procedure, and I proceeded with closure of the wounds. The umbilicus was recreated by tacking down the remaining umbilical skin to the underlying fascia with interrupted simple sutures of 3-0 Vicryl. The dermis was approximated along the midline with buried Vicryl sutures. I would note that prior to proceeding with any additional closure, the abdomen was gently reinflated and using an Endoclose device a suture was placed at the 12-mm port site, which was in the low abdomen with a 0 Vicryl to approximate the internal tissues at 12 mm port site. The patient was placed flat and the abdomen was deflated and the remaining trocars were removed. The skin incisions were all closed with buried 5-0 Vicryl and Steri-Strips. The patient tolerated the procedure well without apparent complication. She was awakened in the operating room, extubated and moved to the recovery room in stable condition. Her Lal catheter was continued but a nasogastric tube placed by anesthesia was removed.
[2019-02-11 22:00] VITALS: BP 162/70
[2019-02-11] MEDS: ENOXAPARIN 30 MG/0.3 ML SYR (J1650) SC SCH (22:27)
[2019-02-12 06:00] VITALS: BP 134/75
[2019-02-12 08:39] VITALS: BP 134/75
[2019-02-12] MEDS: SERTRALINE HCL 50 MG TAB PO SCH (08:39)
[2019-02-12] MEDS: LISINOPRIL 10 MG TAB PO SCH (08:39)
[2019-02-12] MEDS: FUROSEMIDE 40 MG TAB PO SCH (08:39)
[2019-02-12] MEDS: SPIRONOLACTONE 25 MG TAB PO SCH (08:39)
[2019-02-12] MEDS: OMEPRAZOLE 20 MG CAP PO SCH (08:39)
[2019-02-12] MEDS: FAMOTIDINE 20 MG TAB PO SCH (08:42)
--- NOTE | 2019-02-12 09:54 | IPNPDOC ---
Subjective General Date/Time Seen The patient was seen on 02/12/19 at 09:51. Subject Chief Complaint/History The patient is a 78-year-old female admitted with a reason for visit of Right Colon Cancer, Umbilical Hernia. Feels better. Tolerating diet. No nausea. Reports 3 or 4 loose stools the past two days. Current Medications Current Medications Current Medications Acetaminophen (Tylenol Tab) 650 mg Q4HP PRN PO MILD PAIN or TEMP > 101; Start 02/09/19 at 14:45 Acetaminophen/ Hydrocodone Bitart ([place], Anexsia 5/325) 1 tab Q4HP PRN PO MODERATE PAIN (PS 5-7) Last administered on 02/11/19at 08:12; Start 02/09/19 at 14:45 Enoxaparin Sodium (Lovenox) 30 mg DAILY@2300 SC Last administered on 02/11/19at 22:27; Start 02/09/19 at 23:00 Famotidine (Pepcid) 20 mg DAILY PO Last administered on 02/12/19at 08:42; Start 02/10/19 at 09:00 Fentanyl Citrate (Sublimaze) 25 mcg Q5MP PRN IV MODERATE PAIN (PS 4-7); Start 02/09/19 at 15:00; Stop 02/09/19 at 16:00; Status DC Furosemide (Lasix) 40 mg DAILY PO Last administered on 02/12/19at 08:39; Start 02/10/19 at 09:00 Hydromorphone HCl (Dilaudid) 0.25 mg Q5MP PRN IV MODERATE/SEVERE PAIN (PS 5-10 ); Start 02/09/19 at 15:00; Stop 02/09/19 at 16:00; Status DC Insulin Human Lispro (HumaLOG INSULIN) SEE PROTOCOL TABLE AC SC ; Start 02/09/19 at 17:30; Stop 02/10/19 at 10:50; Status DC Insulin Human Lispro (HumaLOG INSULIN) SEE PROTOCOL TABLE QHS SC ; Start 02/09/19 at 21:00; Stop 02/10/19 at 10:50; Status DC Ketorolac Tromethamine (ToRADol) 15 mg Q6HP PRN IV MILD/MODERATE PAIN (PS 1-7) Last administered on 02/09/19at 16:57; Start 02/09/19 at 14:45; Stop 02/10/19 at 08:41; Status DC Lactated Ringer's 1,000 ml @ 50 mls/hr Q20H IV ; Start 02/09/19 at 15:00; Stop 02/09/19 at 16:00; Status DC Lactated Ringer's 1,000 ml @ 100 mls/hr Q10H IV Last administered on 02/10/19at 00:29; Start 02/09/19 at 14:36; Stop 02/10/19 at 10:50; Status DC Lisinopril (Prinivil) 30 mg DAILY PO Last administered on 02/12/19at 08:39; Start 02/10/19 at 09:00 Morphine Sulfate (Morphine Sulfate Inj) 2 mg Q2HP PRN IV MODERATE/SEVERE PAIN (PS 5-10); Start 02/09/19 at 14:45 Omeprazole (PriLOSEC) 20 mg DAILY PO Last administered on 02/12/19at 08:39; Start 02/10/19 at 09:00 Ondansetron HCl (ZOFRAN INJection) 4 mg Q6HP PRN IV NAUSEA OR VOMITING; Start 02/09/19 at 14:45 Promethazine HCl (PHENERGAN INJection) 12.5 mg Q5MP PRN IV NAUSEA OR VOMITING; Start 02/09/19 at 15:00; Stop 02/09/19 at 16:00; Status DC Sertraline HCl (Zoloft) 50 mg DAILY PO Last administered on 02/12/19at 08:39; Start 02/10/19 at 09:00 Simvastatin (Zocor) 20 mg DAILY@2000 PO Last administered on 02/11/19at 19:47; Start 02/09/19 at 20:00 Spironolactone (Aldactone) 25 mg DAILY PO Last administered on 02/12/19at 08:39; Start 02/10/19 at 09:00 Allergies Coded Allergies: Contrast Media (Verified Allergy, Intermediate, hives, 12/22/18) sulfamethoxazole (Verified Allergy, Intermediate, heartburn/diarrhea, 12/22/18) trimethoprim (Verified Allergy, Intermediate, heartburn/diarrhea, 12/22/18) Penicillins (Verified Allergy, Mild, diarrhea, 12/22/18) Objective Physical Examination Examination GENERAL APPEARANCE:sitting on bed, comfortable, just finished breakfast. SKIN: Warm and moist. HEENT: Normocephalic, atraumatic. Stevenson palpebral conjunctiva, anicteric sclerae. Lips and mucosa appear moist. NECK: Supple, no thyromegaly. No obvious jugular venous distention. LUNGS: Clear to auscultation bilaterally. No wheezing appreciated. HEART: No chest wall abnormalities. Regular rate and rhythm with no murmurs appreciated. ABDOMEN: Abdomen is obese, soft, nondistended. port site dressings are clean, dry, intact. No wound drainage or erythema. Nontender on palpation. EXTREMITIES: Extremities have no deformities. No edema identified. Vital Signs Vital Signs Date Time Temp Pulse Resp B/P (MAP) Pulse Ox O2 Delivery O2 Flow Rate FiO2 02/12/19 08:39 134/75 02/12/19 06:00 97.8 71 20 97 02/10/19 10:00 3.0 I&Os I&O- Last 24 Hours up to 6 AM 02/12/19 06:00 Intake Total 1568 ml Output Total 200 ml Balance 1368 ml Laboratory Data Labs 24H Laboratory Tests 2 02/11/19 11:08: Bedside Glucose (Misc Panel) 106 02/11/19 16:37: Bedside Glucose (Misc Panel) 123H 02/11/19 20:57: Bedside Glucose (Misc Panel) 141H 02/12/19 06:05: Bedside Glucose (Misc Panel) 117H Impression POD3 RA Laparoscopic Right Colectomy for colon cancer Shes doing much better and has had several loose tos robert formed stools the past two days. Abdomen is soft and nondistended OK to go home. Patient not taking any narcotics for the past two days. She wants to try just ibuprofen and tylenol Path still pending will be discussed on post op visit with Dr. Landa. Plan / VTE VTE Prophylaxis Ordered?: Yes HERMAN BAUM MD Feb 12, 2019 09:54
[2019-02-12 10:00] VITALS: BP 148/67
== END 2019-02-12 11:26 | disposition home or self-care (01) | DRG 331 ==
LOC: M OR 05:56 → EDSTATUS 07:30 → M MSPAV 16:11
PROVIDERS: ADMIT Surgery; ATTEND Surgery
PROC: 8E0W4CZ Robotic Assisted Procedure of Trunk Region, Percutaneous Endoscopic Approach (ICD-10-PCS; 2019-02-09)
PROC: 0DBK4ZZ Excision of Ascending Colon, Percutaneous Endoscopic Approach (ICD-10-PCS; principal; 2019-02-09 07:30)
PROC: 0WQF4ZZ Repair Abdominal Wall, Percutaneous Endoscopic Approach (ICD-10-PCS; 2019-02-09 07:30)
DX: C18.2 Malignant neoplasm of ascending colon (principal); K42.9 Umbilical hernia without obstruction or gangrene; Z79.899 Other long term (current) drug therapy; Z79.4 Long term (current) use of insulin; Z88.2 Allergy status to sulfonamides; Z88.0 Allergy status to penicillin; Z91.041 Radiographic dye allergy status; Z88.8 Allergy status to other drugs, medicaments and biological substances

== ENCOUNTER → 2019-03-22 | Outpatient (REF) | payer MEDICARE, OTHER ==
[~2019-03-22] MED LIST changes: +METR-265; +NEOM500T; -OMEP20CA3 PO; +OMEP20CA4 PO; +SUPRSOL2
[2019-03-22 13:52] LABS: PERCENT SATURATION 10.2 % (13.2-45.0)
== END ==
LOC: M LAB REF 13:18
PROVIDERS: ATTEND Nurse Practitioner Family
DX: N18.9 Chronic kidney disease, unspecified (principal); D63.1 Anemia in chronic kidney disease

== ENCOUNTER → 2019-04-04 | Outpatient (CLI) | payer MEDICARE, BC, OTHER ==
--- NOTE | 2019-04-04 16:17 | REP ---
Whole body PET CT scan: The patient has recent diagnosis of colon carcinoma after surgery. Additionally, the patient has history of uterine carcinoma proximally 5 years ago. Whole-body PET CT scanning is performed from skull base to the upper thighs. Neck and supraclavicular areas: There are no hypermetabolic foci. The The chest: There are no hypermetabolic foci. Abdomen, pelvis and upper thighs: There is a circumferential surgical anastomotic suture line in the ascending colon compatible with partial colon resection. There is a hysterectomy. There is hypermetabolic uptake along the ascending colon. Surgical suture line with a maximal standard uptake value of 5.5. There is nonspecific uptake throughout the remainder of the bowel, likely secondary to peristalsis. The there is a focus of hypermetabolic uptake in the midline of the anterior pelvic wall at the umbilicus with a standard uptake value of 5.3. This may be secondary to surgical instrumentation. There is no hypermetabolic focus at the vaginal cuff or in the adnexa. There are no hepatic or adrenal hypermetabolic foci. There are no mesenteric hypermetabolic foci. There is descending colon and sigmoid colon diverticulosis without CT evidence of diverticulitis. There is nonspecific bowel uptake in the descending colon and sigmoid colon. Impression: There is hypermetabolic uptake along the surgical circumferential anastomotic suture line in the ascending colon, nonspecific, postsurgical versus neoplastic uptake. There is a focus of hypermetabolic uptake in the midline of the anterior abdominal wall at the umbilicus, possibly from surgical instrumentation. There is nonspecific bowel uptake otherwise, likely secondary to peristalsis. No other hypermetabolic foci are identified. Specifically there are no hepatic or adrenal foci. There is no hypermetabolic focus in relation to the vaginal cuff or adnexa. The study is performed with 9.32 mCi of F 18 FDG. Electronically Signed by Richmond Narayan MD 04/04/2019 04:09 P
== END ==
LOC: M PLARAD 08:23
PROVIDERS: ATTEND Internal Medicine Medical Oncology
DX: C18.2 Malignant neoplasm of ascending colon (principal); Z85.42 Personal history of malignant neoplasm of other parts of uterus; Z90.710 Acquired absence of both cervix and uterus; K57.30 Diverticulosis of large intestine without perforation or abscess without bleeding
CPT/HCPCS: 78815; A9552

== ENCOUNTER → 2019-08-24 | Outpatient (REF) | payer MEDICARE, OTHER ==
[~2019-08-24] MED LIST changes: +HYDR10TAB PO; +OMEP-172 PO; -OMEP20CA4 PO; -SIMV20TA2 PO; +SIMV20TA22 PO
[2019-08-24 14:18] LABS: ALBUMIN 3.5 GM/DL (3.2-5.2); CALCIUM LEVEL 8.8 MG/DL (8.8-10.2); CREATININE FOR GFR 1.45 MG/DL (0.55-1.30); GLOMERULAR FILTRATION RATE 37.3 (>39); PHOSPHORUS LEVEL 3.6 MG/DL (2.5-4.9); POTASSIUM SERUM 3.9 MEQ/L (3.5-5.1); URIC ACID 5.9 MG/DL (2.6-6.0)
== END ==
LOC: M LAB REF 13:35
PROVIDERS: ATTEND Nurse Practitioner Family
DX: N18.3 Chronic kidney disease, stage 3 (moderate) (principal); I10 Essential (primary) hypertension; E11.22 Type 2 diabetes mellitus with diabetic chronic kidney disease

== ENCOUNTER 2019-08-30 08:35 | Outpatient (CLI) | payer MEDICARE, BC, OTHER ==
[~2019-08-30] VITALS: Ht 160 cm; Wt 105.0 kg
[~2019-08-30 08:35] MED LIST changes: -OMEP-172 PO; +OMEP1CAP73 PO
[2019-08-30 09:15] VITALS: BP 146/82
[2019-08-30 09:25] VITALS: BP 152/82
[2019-08-30] MEDS ORDERED: EPINEPHrine INJ 1 MG/ML 1ML VIAL IM PRN (09:30)
[2019-08-30] MEDS ORDERED: diphenhydrAMINE INJ 50MG/ML VIAL (J1200) IV PRN (09:30)
[2019-08-30] MEDS ORDERED: NS 1,000 ML IV SCH (09:30)
[2019-08-30] MEDS ORDERED: ALBUTEROL SULFATE 2.5 MG/0.5 ML INH NEB SOLN INH PRN (09:30)
[2019-08-30] MEDS ORDERED: FERRIC CARBOXYMALTOSE INJ 750 MG in NS 250 ML IV ONE (09:30)
[2019-08-30] MEDS ORDERED: methylPREDNISolone INJ 125 MG/2 ML VIAL (J2930) IV PRN (09:30)
[2019-08-30 10:55] VITALS: BP 150/90
== END 2019-08-30 10:50 | disposition home or self-care (01) ==
LOC: M INFU 08:35
PROVIDERS: ATTEND Internal Medicine Nephrology
DX: D50.9 Iron deficiency anemia, unspecified (principal); Z91.041 Radiographic dye allergy status; Z88.0 Allergy status to penicillin; Z88.2 Allergy status to sulfonamides
CPT/HCPCS: 96365; J1439

== ENCOUNTER 2019-09-06 09:27 | Outpatient (CLI) | payer MEDICARE, BC, OTHER ==
[~2019-09-06] VITALS: Ht 160 cm; Wt 105.0 kg
[2019-09-06] MEDS ORDERED: ALBUTEROL SULFATE 2.5 MG/0.5 ML INH NEB SOLN INH PRN (09:45)
[2019-09-06] MEDS ORDERED: diphenhydrAMINE INJ 50MG/ML VIAL (J1200) IV PRN (09:45)
[2019-09-06] MEDS ORDERED: FERRIC CARBOXYMALTOSE INJ 750 MG in NS 250 ML IV ONE (09:45)
[2019-09-06] MEDS ORDERED: NS 1,000 ML IV SCH (09:45)
[2019-09-06] MEDS ORDERED: EPINEPHrine INJ 1 MG/ML 1ML VIAL IM PRN (09:45)
[2019-09-06] MEDS ORDERED: methylPREDNISolone INJ 125 MG/2 ML VIAL (J2930) IV PRN (09:45)
[2019-09-06 09:53] VITALS: BP 152/78
[2019-09-06 11:35] VITALS: BP 154/88
== END 2019-09-06 11:35 | disposition home or self-care (01) ==
LOC: M INFU 09:27
PROVIDERS: ATTEND Internal Medicine Nephrology
DX: D50.9 Iron deficiency anemia, unspecified (principal); Z88.0 Allergy status to penicillin; Z88.1 Allergy status to other antibiotic agents; Z88.2 Allergy status to sulfonamides; Z91.041 Radiographic dye allergy status
CPT/HCPCS: 96365; J1439

== ENCOUNTER → 2019-12-26 | Outpatient (REF) | payer MEDICARE, OTHER ==
[~2019-12-26] MED LIST changes: -LISI-672 PO; +LISI30TA4 PO
[2019-12-26 17:40] LABS: PERCENT SATURATION 48.1 % (13.2-45.0)
== END ==
LOC: M LAB REF 16:47
PROVIDERS: ATTEND Nurse Practitioner Family
DX: D50.9 Iron deficiency anemia, unspecified (principal)

== ENCOUNTER → 2021-04-02 | Outpatient (REF) | payer MEDICARE, BC, OTHER | LOC: M LAB REF 13:06 | PROVIDERS: ATTEND Nurse Practitioner Family | DX: E83.42 Hypomagnesemia (principal) ==

== ENCOUNTER → 2021-04-02 | Outpatient (CLI) | payer MEDICARE, BC, OTHER ==
[2021-04-02 15:37] LABS: BASO # 0.1 10^3/uL (0.0-0.2); BASO % 1.1 % (0.0-1.0); EOS # 0.3 10^3/uL (0.0-0.5); EOS % 4.1 % (0.0-3.0); HEMATOCRIT 39.7 % (36.0-47.0); HEMOGLOBIN 12.6 g/dl (12.0-15.5); LYMPH # 2.6 10^3/uL (1.5-5.0); LYMPH % 34.7 % (24.0-44.0); MEAN CORPUSCULAR HEMOGLOBIN 30.4 pg (27.0-33.0); MEAN CORPUSCULAR HGB CONC 31.7 g/dl (32.0-36.5); MEAN CORPUSCULAR VOLUME 95.7 fl (80.0-96.0); MONO # 0.7 10^3/uL (0.0-0.8); MONO % 9.2 % (2.0-8.0); NEUTROPHILS # 3.8 10^3/uL (1.5-8.5); NEUTROPHILS % 50.6 % (36.0-66.0); PLATELET COUNT, AUTOMATED 220 10^3/uL (150-450); RED BLOOD COUNT 4.15 10^6/uL (4.00-5.40); WHITE BLOOD COUNT 7.5 10^3/uL (4.0-10.0)
[2021-04-02 15:44] LABS: HEMOGLOBIN A1c 7.8 %
[2021-04-02 16:10] LABS: ALBUMIN 3.7 GM/DL (3.2-5.2); BILIRUBIN,TOTAL 0.4 MG/DL (0.2-1.0); CALCIUM LEVEL 9.6 MG/DL (8.8-10.2); CHOLESTEROL RISK RATIO 2.721 (<5); CREATININE FOR GFR 1.49 MG/DL (0.55-1.30); POTASSIUM SERUM 4.5 MEQ/L (3.5-5.1); THYROID STIMULATING HORMONE 0.797 uIU/ML (0.358-3.740); TOTAL PROTEIN 6.9 GM/DL (6.4-8.2)
[2021-04-02 16:11] LABS: TOTAL 25(OH) VITAMIN D 29.2 NG/ML (30.0-100.0)
[2021-04-02 16:12] LABS: MALB URINE SIEMENS 14.6 MG/L; MAU/CREAT RATIO 9.7 MCG/MG (0.0-30.0); PTH INTACT 103.6 PG/ML (18.5-88.0)
== END ==
LOC: M PLALAB 12:01
PROVIDERS: ATTEND Nurse Practitioner Adult Health
DX: E78.2 Mixed hyperlipidemia (principal); N18.30 Chronic kidney disease, stage 3 unspecified; I12.9 Hypertensive chronic kidney disease with stage 1 through stage 4 chronic kidney disease, or unspecified chronic kidney disease; E55.9 Vitamin D deficiency, unspecified; E11.9 Type 2 diabetes mellitus without complications; C18.9 Malignant neoplasm of colon, unspecified

== ENCOUNTER → 2021-04-18 | Outpatient (CLI) | payer MEDICARE, BC, OTHER ==
--- NOTE | 2021-04-18 10:51 | REPMRS ---
Patient History The patient states she has not had a clinical breast exam in over a year. Family history of breast cancer at age 88 in mother, colorectal cancer at age 62 in father, prostate cancer in brother. Took hormonal contraceptives for 10 years. Took unspecified hormones for 1 year 6 months. Patient states no breast complaints today. Patient has signed MRS History Sheet. Digital Woman Screen Mammo: April 18, 2021 - Exam #: [id number] Bilateral CC and MLO view(s) were taken. Technologist: Qing Morton Technologist Prior study comparison: June 15, 2016, digital woman screen mammo performed at [facility]. June 05, 2015, digital woman screen mammo performed at [facility]. April 26, 2014, bilateral bilat screen digital mammo, performed at [facility] ([facility]). FINDINGS: There are scattered fibroglandular densities. The Volpara volumetric breast density category is:B. There has been no change in the appearance of the mammogram from the prior studies. There is a mild amount of scattered fibroglandular density which is fairly symmetric. There is no interval development of dominant mass, architectural distortion, or grouped microcalcification suggestive of malignancy. 3-D tomosynthesis shows no additional findings. Assessment: BI-RADS/ACR category 1 mammogram. Negative Mammogram. Recommendation Routine screening mammogram of both breasts in 1 year (for women over age 40). This patient's [facility] Lifetime Breast Cancer Risk is estimated at 7.1 %. This mammogram was interpreted with the aid of an FDA-approved computer-aided dectection system. Electronically Signed By: Ivan Koehler MD 04/18/21 0599
== END ==
LOC: M WHC 09:48
PROVIDERS: ATTEND Nurse Practitioner Adult Health
DX: Z12.31 Encounter for screening mammogram for malignant neoplasm of breast (principal)

== ENCOUNTER → 2021-05-26 | Outpatient (CLI) | payer MEDICARE, BC, OTHER ==
[~2021-05-26] MED LIST changes: +CALC1CAP31 PO; +COLE625TAB PO; +GLYB2.5T7 PO
[2021-05-26 12:12] LABS: CREATININE FOR GFR 1.5 MG/DL (0.55-1.30); GLOMERULAR FILTRATION RATE 35.8 (>39)
== END ==
LOC: M PLALAB 08:49
PROVIDERS: ATTEND Physical Medicine & Rehabilitation
DX: G24.3 Spasmodic torticollis (principal)
CPT/HCPCS: 36415; 82565; 84520; G0463

== ENCOUNTER → 2021-06-07 | Outpatient (CLI) | payer MEDICARE, BC, OTHER | LOC: M LABSMTC 11:23 | PROVIDERS: ATTEND Anesthesiology | DX: Z01.812 Encounter for preprocedural laboratory examination (principal); Z20.822 Contact with and (suspected) exposure to COVID-19 ==

== ENCOUNTER 2021-06-10 10:25 | Outpatient (CLI) | payer MEDICARE, BC, OTHER ==
[2021-06-10] MEDS ORDERED: PROHANCE 279.3MG/ML 15ML VIAL As Ordered ONE (12:10)
[2021-06-10 13:30] VITALS: BP 172/72
== END 2021-06-10 13:40 | disposition home or self-care (01) ==
LOC: M SDC 10:25
PROVIDERS: ATTEND Physical Medicine & Rehabilitation
DX: M50.220 Other cervical disc displacement, mid-cervical region, unspecified level (principal); M25.78 Osteophyte, vertebrae; G24.3 Spasmodic torticollis
CPT/HCPCS: 70553; 72156; A9576

== ENCOUNTER → 2021-09-17 | Outpatient (REF) | payer MEDICARE, OTHER, BC | LOC: M LAB REF 13:03 | PROVIDERS: ATTEND Nurse Practitioner Family | DX: E83.42 Hypomagnesemia (principal) ==

== ENCOUNTER → 2022-12-04 | Outpatient (REF) | payer MEDICARE, OTHER ==
[~2022-12-04] MED LIST changes: +COLE625T17 PO; -COLE625TAB PO
== END ==
LOC: M SFHCPLAZ 17:04
PROVIDERS: ATTEND Physician Assistant
DX: J02.9 Acute pharyngitis, unspecified (principal)

== ENCOUNTER → 2022-12-17 | Outpatient (CLI) | payer MEDICARE, BC, OTHER ==
[2022-12-17 16:34] LABS: CHOLESTEROL RISK RATIO 2.25 (<5); HDL CHOLESTEROL 68.4 MG/DL (>40); MAU/CREAT RATIO 34.6 MCG/MG (0.0-30.0); NON-HDL-C 85.6 MG/DL
[2022-12-17 16:37] LABS: THYROID STIMULATING HORMONE 0.832 uIU/ML (0.55-4.78)
[2022-12-17 17:38] LABS: HEMOGLOBIN A1c 6.7 % (4.0-6.0)
== END ==
LOC: M PLALAB 13:21
PROVIDERS: ATTEND Nurse Practitioner Adult Health
DX: E78.2 Mixed hyperlipidemia (principal); E11.9 Type 2 diabetes mellitus without complications; I10 Essential (primary) hypertension

== ENCOUNTER → 2022-12-17 | Outpatient (CLI) | payer MEDICARE, BC, OTHER | LOC: M WHC 12:31 | PROVIDERS: ATTEND Nurse Practitioner Adult Health | DX: Z12.31 Encounter for screening mammogram for malignant neoplasm of breast (principal); E78.2 Mixed hyperlipidemia; E11.9 Type 2 diabetes mellitus without complications; I10 Essential (primary) hypertension ==

== ENCOUNTER → 2023-02-22 | Outpatient (CLI) | payer MEDICARE, BC | LOC: M CLY 11:44 | PROVIDERS: ATTEND Family Medicine | DX: M51.36 Other intervertebral disc degeneration, lumbar region (principal); M85.88 Other specified disorders of bone density and structure, other site ==

== ENCOUNTER → 2023-10-12 | Outpatient (REF) | payer MEDICARE, OTHER ==
[~2023-10-12] MED LIST changes: +HYDR-161 PO; -HYDR10TAB PO
[2023-10-12 18:56] LABS: BACTERIA, URINE AUTO 1+ (NEGATIVE); MUCUS, URINE SMALL (NEGATIVE); RBC, URINE AUTO 20 /HPF (0-3); SQUAMOUS EPITHELIAL CELL UR AU 6 /HPF (0-6); TRANSITIONAL EPITHELIAL AUTO <1 /HPF; WBC, URINE AUTO 23 /HPF (0-3)
== END ==
LOC: M LAB REF 16:58
PROVIDERS: ATTEND Nurse Practitioner Family
DX: R31.29 Other microscopic hematuria (principal)

== ENCOUNTER → 2024-02-08 | Outpatient (REF) | payer MEDICARE, OTHER | LOC: M LAB REF 17:13 | PROVIDERS: ATTEND Nurse Practitioner Family | DX: R31.0 Gross hematuria (principal) ==

== ENCOUNTER → 2024-02-10 | Outpatient (REF) | payer MEDICARE, OTHER, BC | LOC: M SMT 17:14 | PROVIDERS: ATTEND Physician Assistant | DX: R31.0 Gross hematuria (principal) ==

== ENCOUNTER → 2024-02-21 | Outpatient (CLI) | payer MEDICARE, BC | LOC: M PLAIMG 13:07 | PROVIDERS: ATTEND Physician Assistant | DX: R31.0 Gross hematuria (principal); N28.1 Cyst of kidney, acquired; K40.20 Bilateral inguinal hernia, without obstruction or gangrene, not specified as recurrent ==

== ENCOUNTER → 2024-03-06 | Outpatient (REF) | payer MEDICARE, BC | LOC: M SMT 17:36 | PROVIDERS: ATTEND Urology | DX: R31.0 Gross hematuria (principal) ==

== ENCOUNTER → 2024-08-31 | Outpatient (REF) | payer MEDICARE, BC ==
[2024-08-31 18:15] LABS: HEMATOCRIT 40.6 % (36.0-47.0); MEAN CORPUSCULAR VOLUME 96.9 fl (80.0-96.0); PLATELET COUNT, AUTOMATED 209 10^3/uL (150-450); RED BLOOD COUNT 4.19 10^6/uL (4.00-5.40); WHITE BLOOD COUNT 7.9 10^3/uL (4.0-10.0)
[2024-08-31 18:38] LABS: ALBUMIN 3.5 G/DL (3.2-5.2); BILIRUBIN,TOTAL 0.5 MG/DL (0.3-1.2); CHOLESTEROL RISK RATIO 2.32 (<5); CREATININE FOR GFR 1.49 MG/DL (0.55-1.30); GLOMERULAR FILTRATION RATE 35.7 (>32); LDL CHOLESTEROL 74.2 MG/DL (<100); MAGNESIUM LEVEL 1.7 MG/DL (1.8-2.4); POTASSIUM SERUM 4.9 MMOL/L (3.5-5.1); TOTAL PROTEIN 6.9 G/DL (5.7-8.2)
[2024-08-31 18:39] LABS: FERRITIN 61.1 NG/ML (7.3-270.7)
[2024-08-31 19:20] LABS: HEMOGLOBIN A1c 6.9 % (4.0-6.0)
== END ==
LOC: M SFHCPLAZ 09:00
PROVIDERS: ATTEND Nurse Practitioner Adult Health
DX: E11.9 Type 2 diabetes mellitus without complications (principal); E78.2 Mixed hyperlipidemia; I10 Essential (primary) hypertension; K21.9 Gastro-esophageal reflux disease without esophagitis; E55.9 Vitamin D deficiency, unspecified

== ENCOUNTER → 2024-10-31 | Outpatient (CLI) | payer MEDICARE, BC | LOC: M WHC 15:05 | PROVIDERS: ATTEND Nurse Practitioner Adult Health | DX: Z12.31 Encounter for screening mammogram for malignant neoplasm of breast (principal) ==

== ENCOUNTER → 2025-04-13 | Outpatient (CLI) | payer MEDICARE, BC | LOC: M WHC 10:57 | PROVIDERS: ATTEND Nurse Practitioner Family | DX: N18.31 Chronic kidney disease, stage 3a (principal); N28.1 Cyst of kidney, acquired ==